=== PATIENT | female | born 1960 | race Hispanic/Latino ===

== ENCOUNTER → 2022-08-09 | Outpatient (CLI) | payer OTHER ==
[~2022-08-09] MED LIST: FISH OIL 1,2001 EACH PO; NEXIUM40 M1 PEG
== END ==
LOC: MAMMO 12:02
PROVIDERS: ATTEND Internal Medicine
DX: Z12.31 Encounter for screening mammogram for malignant neoplasm of breast (principal)
CPT/HCPCS: 77067